=== PATIENT | female | born 1940 | race Two or more races ===

== ENCOUNTER → 2017-12-20 | Emergency (ER) | payer OTHER ==
[~2017-12-20] VITALS: Ht 160 cm; Wt 72.6 kg
[~2017-12-20] MED LIST: CRESTOR10 MG; HYZAAR 100-121 UDTAB; PAXIL10 MG/5 ML; ZANTAC15 MG/ML
== END | disposition home or self-care (01) ==
LOC: ER 18:44
DX: N20.0 Calculus of kidney (principal); N28.1 Cyst of kidney, acquired; K82.8 Other specified diseases of gallbladder; R10.11 Right upper quadrant pain